=== PATIENT | male | born 1990 | race Two or more races ===

== ENCOUNTER 2024-11-26 15:44 | Emergency (ER) | payer OTHER, SELFPAY ==
[2024-11-26 15:49] VITALS: BP 119/80; PULSE 87; RESP 20; TEMP 37.1; O2SAT 98
--- NOTE | 2024-11-26 15:55 | XR_ITS ---
Examination: CT abdomen and pelvis without contrast. Coronal 3-D reconstructions. Sagittal 2-D reconstructions. Date and time of exam: November 26, 2024, 1628 hours INDICATIONS: Generalized abdominal pain today CTDI: vol (mGy): 5.66 DLP: (mGycm): 340 Technique: Axial images of the abdomen have been obtained, 3 mm slice thickness Intravenous contrast material has not been administered. Low dose protocols were performed. One or more of the following dose reduction techniques were used; automated exposure control, adjustment of the mA and/or KV according to patient size, use of iterative reconstruction technique. Findings: Focal areas of fatty infiltration and fatty sparing throughout the liver No gallstones Spleen is nonenlarged Pancreatic head is enlarged, axial image 68, measuring up to 3.3 cm in dimension with calcifications No peripancreatic edema Severely atrophic right kidney with mild wall thickening Compensatory hypertrophy left kidney No renal calculi 25 mm fat-containing umbilical hernia Normal appendix No bowel obstruction No diverticulitis Pronounced urinary bladder wall thickening up to 10 mm No prostatomegaly Tiny fat-containing left inguinal hernia Osseous structures are intact IMPRESSION: Abnormally enlarged pancreatic head with calcifications, recommend MRI abdomen pancreas follow-up pre and postcontrast Severely atrophic right kidney with scar formation and wall thickening involving the pelvicalyceal system, consider urinary tract infection Normal appendix Pronounced thickening urinary bladder wall, differential would include cystitis
--- NOTE | 2024-11-26 15:55 | PD.EDRME ---
Rapid Medical Screening Exam E Arrival date/time: 11/26/24 15:44 34-year-old male with medical history significant for diabetes presents to the emergency room today for complaints of lower abdominal pain, pain with urination Chief Complaint: Abdominal Pain Time Seen by Provider: 11/26/24 15:48 Vital signs: Vital Signs Temperature 98.7 F 11/26/24 15:49 Pulse Rate 87 11/26/24 15:49 Respiratory Rate 20 11/26/24 15:49 Blood Pressure 119/80 11/26/24 15:49 Pulse Oximetry (%) 98 11/26/24 15:49 Oxygen Delivery Method Room Air 11/26/24 15:49
[2024-11-26 16:46] LABS: Collection Type, Urine Clean Catch; RBC,Urine 0 /hpf (0-3)
[2024-11-26 16:59] LABS: Basophils # (Auto) 0.0 Thou/mm3 (0.0-0.2); Basophils % (Auto) 0 % (0-2.5); Eosinophils # (Auto) 0.2 Thou/mm3 (0.0-0.5); Eosinophils % (Auto) 2 % (0-10); Hematocrit 48.8 % (41.0-53.0); Hemoglobin 18.0 g/dL (13.5-16.0); Immature Granulocytes Auto 0.05 Thou/mm3 (0.00-0.00); Lymphocytes # (Auto) 1.3 Thou/mm3 (1.0-4.8); Lymphocytes % (Auto) 11 % (10-50); Mean Corpuscular HGB Conc 36.9 g/dl (31.0-37.0); Mean Corpuscular Hemoglobin 32.0 pg (25.0-35.0); Mean Corpuscular Volume 87 fL (80-100); Monocytes # (Auto) 0.7 Thou/mm3 (0.0-0.8); Monocytes % (Auto) 6 % (0-12); Neutrophils # (Auto) 9.6 Thou/mm3 (1.8-7.7); Neutrophils % (Auto) 81 % (37-80); Nucleated Red Blood Cell # 0.00 Thou/mm3 (0.00-0.00); Nucleated Red Blood Cell % 0 /100 WBC (0); Platelet Count 234 Thou/mm3 (140-440); RDW Standard Deviation 37.5 fL (35.1-43.9); Red Blood Count 5.63 Miln/mm3 (4.50-5.90); White Blood Count 11.8 Thou/mm3 (3.8-10.6)
[2024-11-26 17:09] LABS: Glucose Estimated Average 243 mg/dL (80-131); Hemoglobin A1C 10.1 % Hgb (4.8-6.0)
[2024-11-26 17:09] LABS: Bilirubin,Urine Negative (Negative); Blood,Urine Negative (Negative); Clarity,Urine Clear (Clear/Hazy); Color,Urine Colorless (Lt Yel-Yel); Culture Indicated,Urine Not Indicated; Glucose, Urine 4+ (Negative); Ketones,Urine Negative (Negative); Leukocyte Esterase,Urine Negative (Negative); Nitrite,Urine Negative (Negative); PH,Urine 6.5 (5.0-7.0); Protein,Urine Negative (Neg - Trace); Specific Gravity,Urine 1.004 (1.001-1.035); Squamous Epithelial Cell,Urine < 1 /hpf (0-5); Urobilinogen,Urine Negative mg/dL (0.0-1.0); WBC,Urine < 1 /hpf (0-5)
[2024-11-26 18:04] LABS: Alanine Aminotransferase 30 U/L (10-49); Albumin, Serum 5.3 gm/dL (3.5-5.0); Albumin/Globulin Ratio 2.0 (1.2-2.2); Alkaline Phosphatase 113 U/L (46-116); Anion Gap 12 (7-16); Aspartate Amino Transferase 25 U/L (0-34); BUN/Creatinine Ratio 9 Ratio (12-20); Bilirubin,Total 0.7 mg/dL (0.3-1.2); Blood Urea Nitrogen 8 mg/dL (9-23); Calcium 10.0 mg/dL (8.3-10.6); Calcium (Corrected) 10.0 mg/dL (8.5-10.1); Carbon Dioxide 26.5 mMol/L (20.0-31.0); Chloride 97 mMol/L (98-107); Creatinine (Component) 0.9 mg/dL (0.6-1.3); Globulin 2.7 gm/dL (2.3-3.5); Glucose 359 mg/dL (74-106); Lipase 79 U/L (12-53); Osmolality,Calculated 282 (275-295); Potassium 3.7 mMol/L (3.4-5.1); Sodium 135 mMol/L (136-145); Total Protein 8.0 gm/dL (5.7-8.2); eGFR > 60 See Note
--- NOTE | 2024-11-26 18:36 | EDNOTE_ITS ---
ED Abdominal Pain RME/HPI General Chief Complaint: Abdominal Pain Stated complaint: LOWER ABD PAIN, DYSURIA Time seen by provider: 11/26/24 15:48 Arrival date/time: 11/26/24 15:44 RME / HPI RME / HPI narrative: 11/26/24 15:44 34-year-old male with medical history significant for diabetes presents to the emergency room today for complaints of lower abdominal pain, pain with urination Dr. Gonzalez?s Main ED Evaluation: 34yo male with history of DM presents to the ED for complaints of lower abdominal pain and penile pain x 1 day. Patient states his pain worsens when he urinates. Patient denies any penile discharge, fever, chills, dysuria, frequency, or any other associated symptoms. Review of Systems Review of Systems Systems Reviewed: All systems reviewed, normal except as documented ED Exam Narrative Physical exam: Generally patient is alert and in no obvious distress heart regular rate and rhythm, lungs clear to auscultation equal bilaterally, abdomen soft bowel sounds present also nontender, genital exam shows uncircumcised penis with mild swelling and erythema at the distal glans penis without urethral discharge Course Quality Measures none Orders Category Date Time Status CT abdomen pelvis wo con Stat Exams 11/26/24 15:55 Completed A1C [Glycohemoglobin w (eAG)] Stat Lab 11/26/24 16:51 Completed CBC Stat Lab 11/26/24 16:51 Completed Comprehensive Metabolic Panel Stat Lab 11/26/24 16:51 Completed Lipase Stat Lab 11/26/24 16:51 Completed UA, C/S IF [Urinalysis, C/S if Indicated] Stat Lab 11/26/24 16:39 Completed Vital Signs Vital signs: Vital Signs Temperature 98.7 F 11/26/24 15:49 Pulse Rate 87 11/26/24 15:49 Respiratory Rate 20 11/26/24 15:49 Blood Pressure 119/80 11/26/24 15:49 Pulse Oximetry (%) 98 11/26/24 15:49 Oxygen Delivery Method Room Air 11/26/24 15:49 Abdominal Pain MDM MDM Narrative MDM Narrative:: Scribe Attestation: 11/26/24 - Michelle Vergara, am scribing for and in the presence of Dr. Gonzalez. I interpreted all labs. Blood sugar is elevated. It does not require treatment here in the emergency room. Patient is not diabetic ketoacidosis. Patient has been noncompliant with his oral antihyperglycemic medication. Physical exam is compatible with mild balanitis. He is to retract the foreskin and keep the glans penis clean. It requires no other treatment. He is not having epigastric abdominal pain. Lipase was slightly elevated. CT scan down the abdomen and pelvis with IV contrast showed some enlargement of the head of the pancreas most likely secondary to mild pancreatitis possibly secondary to his hyperglycemia. He was notified of this fact and needs to follow-up with his primary care physician for repeat CAT scan within the next several months. Patient data External records reviewed:: [facility] previous records (Per chart review, patient has no previous ED visits or admissions to this facility.) Clinical information provided by:: patient Social determinants that could affect healthcare access:: none Patient has the following chronic illnesses:: DM How is presenting disease/condition affected by chronic disease/condition?: uneffected by Evaluation data The following diagnostics were reviewed and interpreted by me:: lab results and radiology exam(s) Lab and/or radiology exams considered but not ordered:: none Interpretation Summary: [facility] Report Signed Patient: MICHAEL MARTIN. Record#: [id number] Birthdate: 1990 Age/Sex: 34 / M Location: [facility] Attending Dr: Ordering Physician: Braden LOPES)Nilesh NP Date of Service: 11/26/24 Procedure(s): CT abdomen pelvis wo con Accession Number(s): [id number] cc: Nilesh Feliciano NP, NP; Heber Mart MD; NO PRIMARY/FAMILY,PHYSICIAN~ Examination: CT abdomen and pelvis without contrast. Coronal 3-D reconstructions. Sagittal 2-D reconstructions. Date and time of exam: November 26, 2024, 1628 hours INDICATIONS: Generalized abdominal pain today CTDI: vol (mGy): 5.66 DLP: (mGycm): 340 Technique: Axial images of the abdomen have been obtained, 3 mm slice thickness Intravenous contrast material has not been administered. Low dose protocols were performed. One or more of the following dose reduction techniques were used; automated exposure control, adjustment of the mA and/or KV according to patient size, use of iterative reconstruction technique. Findings: Focal areas of fatty infiltration and fatty sparing throughout the liver No gallstones Spleen is nonenlarged Pancreatic head is enlarged, axial image 68, measuring up to 3.3 cm in dimension with calcifications No peripancreatic edema Severely atrophic right kidney with mild wall thickening Compensatory hypertrophy left kidney No renal calculi 25 mm fat-containing umbilical hernia Normal appendix No bowel obstruction No diverticulitis Pronounced urinary bladder wall thickening up to 10 mm No prostatomegaly Tiny fat-containing left inguinal hernia Osseous structures are intact IMPRESSION: Abnormally enlarged pancreatic head with calcifications, recommend MRI abdomen pancreas follow-up pre and postcontrast Severely atrophic right kidney with scar formation and wall thickening involving the pelvicalyceal system, consider urinary tract infection Normal appendix Pronounced thickening urinary bladder wall, differential would include cystitis Dictated By: Heber Mart MD Signed By: <Electronically signed by Heber Mart MD in OV> 11/26/24 7076 Medications / Prescriptions Medications or Prescriptions considered but not ordered:: none Medication administrations:: see above, if any Consultations Consultation(s) initiated? (list below): No Diagnosis Differential diagnosis abdominal pain: other (See MDM) Most likely diagnosis given after review of the tests above:: see clinical impression below Admission Indicated Admission indicated?: not indicated Admission Request Was there a request for admission?: No Disposition Plan Disposition Plan: Discharge Discharge Attestation Discharge Attestation: The patient and all family members were given an opportunity to ask questions and understood the discharge instructions. Discharge instructions specifically effects, indications for sooner follow up or return to the emergency department, and the expected course of current diagnosis. Patient condition: Stable Discharge Plan Plan Patient Disposition: HOME (Self Care) Prescriptions/Referrals Referrals: No Primary/Family,Physician [Primary Care Provider] - In 1 week Problem List Clinical Impression: Balanitis, Poorly controlled diabetes mellitus Patient/Caregiver Discharge Instructions Education Materials: ED Balanitis, ED Diabetes- Overview Additional Instructions: You must take your diabetic medication as prescribed. You have a slight infection of the penile head which will get better with you retracting the foreskin and keeping the area clean. Follow-up with your doctor for further treatment and evaluation. Print Language: [place]i Stand Alone Forms: [facility] Award Info., Patient Portal Info Letter
== END 2024-11-26 19:32 | disposition home or self-care (01) ==
PROVIDERS: Nurse Practitioner Primary Care; Emergency Provider Emergency Medicine
DX: E11.65 Type 2 diabetes mellitus with hyperglycemia (principal); N48.1 Balanitis; N52.1 Erectile dysfunction due to diseases classified elsewhere
CPT/HCPCS: 36415; 74176; 80053; 81001; 83036; 83690; 85025; 99283